=== PATIENT | male | born 1975 | race Caucasian/White ===

== ENCOUNTER 2023-11-27 13:56 | Outpatient (RCR) | payer OTHER, SELFPAY | END 2023-11-27 23:59 | disposition home or self-care (01) | LOC: RPT 13:56 | PROVIDERS: ATTENDING PHYSICIAN Nurse Practitioner Adult Health; FAMILY PHYSICIAN Nurse Practitioner Family | DX: G51.0 Bell's palsy (principal); Z73.6 Limitation of activities due to disability | CPT/HCPCS: 97032; 97110; 97162 ==

== ENCOUNTER → 2025-02-09 09:37 | Outpatient (REF) | payer OTHER, SELFPAY | LOC: RAD 09:37 | PROVIDERS: ATTENDING PHYSICIAN Physician Assistant Medical | DX: R06.02 Shortness of breath (principal); R05.3 Chronic cough; Z72.0 Tobacco use | CPT/HCPCS: 71046 ==

== ENCOUNTER → 2025-06-27 14:09 | Outpatient (REF) | payer OTHER, SELFPAY | LOC: RAD 14:09 | PROVIDERS: ATTENDING PHYSICIAN Nurse Practitioner Family | DX: J40 Bronchitis, not specified as acute or chronic (principal); R06.02 Shortness of breath | CPT/HCPCS: 71046 ==

== ENCOUNTER 2025-07-09 13:50 | Emergency (ER) | payer OTHER, SELFPAY ==
[2025-07-09 14:00] VITALS: BP 144/98
[2025-07-09 14:27] LABS: Hematocrit 45.5 % (39.0-52.0); Hemoglobin 15.2 g/dL (13.0-18.0); Mean Corp Hgb Conc. 33.4 g/dL (33.0-37.0); Mean Corpuscular Volume 92.9 fL (80.0-94.0); Nucleated Red Blood Cells % 0 % (-); Platelet Count 197 10^3/uL (130-400); Red Cell Dist. Width 13.7 % (11.5-14.5)
[2025-07-09 14:38] LABS: INR 0.99; PT 13.3 Sec (11.4-14.6)
[2025-07-09 14:41] LABS: ALT (SGPT) 23 U/L (0-50); AST (SGOT) 25 U/L (17-59); Albumin 3.9 g/dl (3.5-5.0); Alkaline Phosphatase 44 U/L (38-126); Blood Urea Nitrogen 18 mg/dl (9-20); Calcium 9.2 mg/dl (8.4-10.2); Carbon Dioxide 28 mmol/L (22-30); Chloride 106 mmol/L (98-107); Glucose 165 mg/dl (70-99); Potassium 4.7 mmol/L (3.5-5.1); Sodium 138 mmol/L (135-145); Total Protein 5.7 g/dl (6.3-8.2); eGFR > 60.00
[2025-07-09 14:52] LABS: Troponin I < 0.012 ng/ml
[2025-07-09] MEDS: DUONEB 3 ML INH (16:51)
[2025-07-09 17:00] VITALS: BP 133/74
[2025-07-09] MEDS: DECADRON 10 MG PO (17:41)
[2025-07-09 18:00] VITALS: BP 143/84
[2025-07-09 18:01] LABS: D-Dimer 0.38 ug/mlFEU (0.00-0.50)
[2025-07-09 19:00] VITALS: BP 136/96
[2025-07-09 19:26] LABS: Troponin I < 0.012 ng/ml
--- NOTE | 2025-07-09 19:39 | ED.GENMED ---
History of Present Illness
General
Chief Complaint: Breathing Problem
Source: patient
Exam Limitations: none
Time Seen by Provider: 07/09/25 16:41
Nursing documentation reviewed up to this point in time: agreed with
History of Present Illness
History of Present Illness:
Patient to ED with complaint of SOB. History of COPD. Using inhalers without improvement. no fever/chill. No change in cough. Brought self to ED for eval
Past History
Past History
ED Past Medical History: COPD
ED Past Surgical History: None
Social History
Tobacco: Non-smoker
Alcohol: None
Personal:
Living: with family
Employment: Employed
Review of Systems
Review of Systems
Allergies reviewed?: Yes
All Other Systems: ROS reviewed and negative except as documented in HPI and ROS
Constitutional: Reports no symptoms
EENT: Reports no symptoms
Respiratory: Reports cough and trouble breathing
Cardiac: Reports no symptoms
ABD/GI: Reports no symptoms
: Reports no symptoms
Musculoskeletal: Reports no symptoms
Skin: Reports no symptoms
Neurological: Reports no symptoms
Psychiatric: Reports no symptoms
Phy Exam
General Physical Exam
General Presentation: well appearing and no apparent distress
General age: appears stated age
General Skin: warm and dry
General Habitus: normal
General Mental: alert
Cardiovascular Exam
Cardiovascular Exam: regular rate/rhythm and no edema
Pulmonary Exam
Pulmonary Exam: generalized wheezing
Musculoskeletal Exam
Musculoskeletal Exam: full ROM and neuro vasc intact
Skin Exam
Skin Exam: normal color, warm/dry and no rash
Psychiatric Exam
Psychiatric Exam: normal mood/affect
Scores
Heart Failure Risk
Heart Failure Risk Score: Not Applicable
Course
Orders/Labs/Results
Orders:
Orders
07/09/25 13:58
EKG [Electrocardiogram (*1)] Urgent
Reason for Study: Chest Pain
EKG- Treatment ONCE
07/09/25 14:09
Complete Blood Count/With Diff Urgent
Comprehensive Metabolic Panel Urgent
D-Dimer Urgent
Comment: ADD ON
Prothrombin Time Urgent
Troponin I Urgent
07/09/25 16:46
Ipratropium/Albuterol Sulfate [Duoneb] 3 ml INH R NOW STA
CR Chest - 2 Views Urgent
Comment:
Reason For Exam: SOB
07/09/25 17:19
Dexamethasone Pf [Decadron] 10 mg PO NOW STA
07/09/25 17:49
Add On- LAB Urgent
Tests Added?: ddimer
07/09/25 18:46
Troponin I Urgent
Abnormal Lab Results
07/09/25
14:09
Absolute Lymphs (auto) 1.0 L 10^3/uL
(1.2-3.4)
Lymphocytes % 16.2 L %
(20.5-51.1)
Glucose 165 H mg/dl
(70-99)
Total Protein 5.7 L g/dl
(6.3-8.2)
07/09/25 14:09
07/09/25 14:09
Vital Signs
Initial and Last Documented VS:
Initial Vital Signs
Temp Pulse Resp BP Pulse Ox
98.4 F 78 18 144/98 97
07/09/25 14:00 07/09/25 14:00 07/09/25 14:00 07/09/25 14:00 07/09/25 14:00
Last Documented Vital Signs
Temp Pulse Resp BP Pulse Ox
98.4 F 80 19 136/96 96
07/09/25 14:00 07/09/25 19:00 07/09/25 19:00 07/09/25 19:00 07/09/25 19:00
*Radiology
Radiology exam reviewed: radiology read reviewed
*Pulse Oximetry
SaO2: 96
Oxygen Mode of Delivery: Room air
Patient hypoxic: no (98% RA)
*EKG
Rate: normal
Rhythm: sinus
*Critical Care Note
Total Time (30-74mins, 75-104mins- exclusive of procedures): Not Applicable
Update Note
Update Note:
Patient to ED with complaint of SOB. PUlse ox remains 98% RA. Lung sounds with wheezing throughout. Given decadron and duoneb in ED with improvement. CXR consistent with bronchitis. No infectious process noted. troponin and ddimer both neg.
Patient to ED with rx for chest CT which was offered to him. He has decided to follow up outpatient for CT.
ED Attending Note
-
Portions of this chart may have been created with voice recognition software.� Occasional wrong word or��sound alike� substitutions may have occurred due to the inherent limitations of voice recognition software.
Discharge Plan
Departure
Patient Disposition: Home (Routine Discharge)
Date of Disposition: 07/09/25
Time of Disposition: 19:28
Patient with high blood pressure during this ER visit?: No
Condition: Good
Covid-19: Not Applicable
Discharge Problem:
Bronchitis
Instructions: Bronchitis in adults - ED discharge instructions
Prescriptions:
New
prednisone 10 mg Tablet
See Rx Instructions .ROUTE .COMPLEX Qty: 30 0RF
Rx Instructions:
Take By Mouth:
40 mg daily x3 days, 30 mg daily x3 days,
20 mg daily x3 days, 10 mg daily x3 days.
No Action
carboxymethylcellulose sodium [TheraTears] 1 % Dropperette,Gel
1 drp ophthalmic (eye) QIDPRN PRN (Reason: dry eyes) Qty: 30 0RF
ceftriaxone 2 gram Recon Soln
2,000 mg IV Q24H Qty: 0 0RF
Referrals:
Reji Okeefe MD [Active, Cardiology] - Next open appointment
Dulce Allen CRNP [Family Provider, Family Practice] - Tomorrow
Activity Restrictions/Additional Instructions:
Return to the emergency department immediately for any changes in/worsening of your symptoms.
Interventions
Interventions:
*Risk Screen - Suicide Last Done: 07/09/25 14:00
*General Assessment Last Done: 07/09/25 14:00
*Neglect/Abuse Screening Last Done: 07/09/25 16:54
*ED- Fall Risk Assessment Last Done: 07/09/25 19:37
*ED COVID-19 Vaccine History Last Done: 07/09/25 16:44
*Nursing Disposition Last Done: 07/09/25 19:37
ED- Cardiac Assessment Last Done: 07/09/25 16:54
ED- Pulmonary Assessment Last Done: 07/09/25 16:54
Discharge Date and Time
Discharge Date/Time: 07/09/25 19:38
Print Language: MALAY
== END 2025-07-09 19:38 | disposition home or self-care (01) ==
LOC: EMR 13:50
PROVIDERS: Emergency Medicine; Nurse Practitioner; EMERGENCY PHYSICIAN Emergency Medicine; FAMILY PHYSICIAN Nurse Practitioner Family
DX: J40 Bronchitis, not specified as acute or chronic (principal); J44.9 Chronic obstructive pulmonary disease, unspecified
CPT/HCPCS: 94640; 99285; 71046; 80053; 84484; 85025; 85379; 85610; 93005